=== PATIENT | female | born 1995 | race Hispanic/Latino ===

== ENCOUNTER 2016-09-01 13:26 | Emergency (ER) | payer OTHER ==
[~2016-09-01] VITALS: Ht 157.5 cm; Wt 81.8 kg
[2016-09-01 13:35] VITALS: BP 134/88; PULSE 101; RESP 16; O2SAT 100
--- NOTE | 2016-09-01 14:22 | ED.REPORT ---
HPI-Abd Pain F Under 40 Date of Service Sep 01, 2016 ED Provider: Cristobal Avina MD Isatu is an otherwise healthy 20-year-old female who presents with a chief complaint of left-sided abdominal pain. She states that her pain began insidiously about 2 days ago and was located epigastric at that time. Since then it has moved into her left upper quadrant. She states the pain comes and goes. She states it is aggravated by deep inspiration. Denies heartburn, vomiting, bowel changes, bloody/tarry stools, fever, chills, malaise, respiratory symptoms, urinary symptoms, back pain, vaginal bleeding/discharge, trauma, vigorous exercise, denies history of abdominal surgeries. Patient states that her last menstrual period was approximately August 09. Nursing Notes Stated Complaint: ABDOMINAL PAIN Chief Complaint: Female Abdominal Pain Nursing Notes Reviewed: Yes Allergies: Coded Allergies: No Known Allergies (Unverified , 09/01/16) General Time Seen by MD: 14:15 Chief Complaint Abdominal pain Sudden in Onset?: No Past Medical History Past Medical History Notes: Denies Review of Systems General: Denies fever, chills, malaise. HEENT: Denies congestion, headache, sore throat. Respiratory: Denies dyspnea, cough, shortness of breath, wheezing. Cardiovascular: Denies chest pain, palpitations. Gastrointestinal: Denies vomiting, diarrhea, abdominal pain. Genitourinary: Denies frequency, urgency, dysuria, hematuria. Otherwise as noted in HPI. Physical Exam General: Well appearing, well developed, obese, no acute distress. Head: Atraumatic, normocephalic. Eyes: No scleral icterus or injection. No discharge. Vision grossly intact. ENT: Voice clear, hearing grossly intact. Respiratory: Regular rate and rhythm. Breath sounds present, clear to auscultation and equal bilaterally. Cardiovascular: Regular rate and rhythm, without murmur, gallop or rub. No pedal edema. Gastrointestinal: Obese abdomen with mild tenderness in left upper quadrant, epigastric and right lower quadrant without guarding or rebound. Bowel sounds normoactive. Skin: Warm and dry. Neurological: Grossly nonfocal. Psychological: Alert and oriented. Speech appropriate, linear and logical. Behavior appropriate. Initial Vital Signs Vital Signs (First) Date Time Temp Pulse Resp B/P Pulse Ox O2 Delivery O2 Flow Rate FiO2 09/01/16 13:35 36.4 101 16 134/88 100 Room Air Initial VS: Vital signs abnormal (very slight tachycardia) Interpretation & Diagnostics Lab Results Interpretation Result Diagram: 09/01/16 1534 09/01/16 1534 Test 09/01/16 15:34 09/01/16 15:40 White Blood Count 11.5th/mm3 (3.8-10.1) Red Blood Count 4.51mil/mm3 (3.90-5.20) Hemoglobin 13.2g/dL (12.0-15.6) Hematocrit 38.0% (35.0-46.0) Mean Corpuscular Volume 84.3fL (81-100) Mean Corpuscular Hemoglobin 29.3pg (27.0-35.0) Mean Corpuscular Hemoglobin Concent 34.7% (32.0-37.0) Red Cell Distribution Width 12.9% (12.3-15.4) Platelet Count 246bil/L (150-400) Neutrophils (%) (Auto) 69.0% (40-74) Lymphocytes (%) (Auto) 23.4% (14-46) Monocytes (%) (Auto) 5.2% (4-12) Eosinophils (%) (Auto) 1.0% (0-5) Basophils (%) (Auto) 0.4% (0-3) Sodium Level 138mEq/L (134-144) Potassium Level 3.7mEq/L (3.5-5.2) Chloride Level 102mEq/L (97-108) Carbon Dioxide Level 22mmol/L (18-29) Blood Urea Nitrogen 9mg/dL (6-20) Creatinine 0.47mg/dL (0.57-1.00) Estimat Glomerular Filtration Rate 242mL/min (>59) Glucose Level 98mg/dL (60-99) Calcium Level 8.9mg/dL (8.5-10.1) Magnesium Level 1.9mg/dL (1.6-2.6) Total Bilirubin 0.7mg/dL (0.0-1.2) Aspartate Amino Transf (AST/SGOT) 14U/L (0-50) Alanine Aminotransferase (ALT/SGPT) 12U/L (0-32) Alkaline Phosphatase 84U/L (25-150) Total Protein 7.6g/dL (6.4-8.4) Albumin 4.2g/dL (3.4-5.0) Lipase 22U/L (13-60) Hold Damico Top Tube Received (Received) Hold Urine Received (Received) Re-Eval/Medical Decision Med Decision/Clinical Course Otherwise healthy 20-year-old female presents with sporadic left-sided abdominal pain that began insidiously approximately 2 days ago the epigastric region and has since migrated to the left upper quadrant. Reports it is aggravated by deep breaths. The patient appears quite well. Physical is generally reassuring with very mild tenderness in the abdomen without guarding or rebound, mostly epigastric, left upper quadrant and right lower quadrant. CBC reveals a slight leukocytosis. Lipase is normal. All right lower quadrant tenderness is concerning for appendicitis, her tenderness is quite mild and found somewhat incidentally. I think appendicitis is very unlikely. Furthermore I do not think this is likely to be a bleeding ulcer, pancreatitis, diverticulitis or pneumonia. I discussed possibly performing a CT scan or ultrasound with the patient, but indicated my preference for a period of watchful waiting. Patient is amenable and prepared for discharge with referral for primary care follow-up and strict return precautions. Initial tachycardia resolved at discharge. Discharge & Departure Primary Impression: Abdominal pain Abdominal location: left upper quadrant Qualified Code: R10.12 - Left upper quadrant pain Disposition: Home Discharge Condition All VS Reviewed: Yes Condition: Stable Patient Instructions: Acute Abdominal Pain (ED) Additional Instructions: Evaluation for abdominal pain in the ED. History and physical is generally reassuring with mild tenderness in her abdomen. Lab tests are normal. At this point, I feel is unlikely that the pain in your abdomen is caused by dangerous condition in either your intestines, pancreas or your lungs. Unfortunately I cannot say why you have pain in your abdomen. As we discussed, I feel the best course of action is a period of watchful waiting, rather than tests such as ultrasound or CT scan. I will provide you with a referral for primary care follow-up. Please contact them if the pain continues for more than a few more days. Return to emergency department for any new or worsening symptoms including increasing pain, bloody/tarry stool, difficulty breathing. Referrals: [facility] Provider for [facility]: Cristobal Avina MD Attending Statment Attending attestation: I saw this patient in conjunction with Konrad Ojeda PA-C. I agree with the workup, evaluation, treatment and disposition. Cristobal Rodas MD, MD Sep 01, 2016 14:22 Konrad Ojeda PA-C Sep 01, 2016 15:39
[2016-09-01 15:47] LABS: BASOPHILS % (AUTO) 0.4 % (0-3); MONOCYTES % (AUTO) 5.2 % (4-12); Mean Corpuscular Hemoglobin 29.3 pg (27.0-35.0); Mean Corpuscular Volume 84.3 fL (81-100); Platelet Count 246 bil/L (150-400)
[2016-09-01 16:12] LABS: Magnesium 1.9 mg/dL (1.6-2.6)
[2016-09-01 17:20] VITALS: BP 117/74; PULSE 80; RESP 20; O2SAT 98
[2016-09-01 17:33] VITALS: BP 117/74; PULSE 80; RESP 20; O2SAT 98
== END 2016-09-01 17:33 | disposition home or self-care (01) ==
LOC: SED 13:26
DX: R10.12 Left upper quadrant pain (principal)